=== PATIENT | female | born 1980 | race Caucasian/White ===

== ENCOUNTER 2017-04-15 12:40 | Emergency (ER) | payer OTHER ==
[2017-04-15] MEDS ORDERED: Ibuprofen TAB* 600 MG PO ONE (12:48)
--- NOTE | 2017-04-15 12:53 | UC ---
Lower Extremity/Ankle HPI - HPI Summary HPI Summary: Patient had sudden onset pain and swelling a the insertion of the achilles of the left foot. started yesterday. Painful to bear weight, cannot go up on her toes. - History of Current Complaint Stated Complaint: LEFT FOOT PAIN Time Seen by Provider: 04/15/17 12:46 Hx Obtained From: Patient ?: No Onset/Duration: Sudden Onset, Lasting Days - 1 Severity Initially: Moderate Severity Currently: Severe Aggravating Factor(s): Standing, Ambulation Alleviating Factor(s): Rest, Ice Able to Bear Weight: Yes - painful - Allergies/Home Medications Allergies/Adverse Reactions: Allergies Allergy/AdvReac Type Severity Reaction Status Date / Time Morphine Allergy Difficulty Verified 04/15/17 12:52 Breathing Sumatriptan [From Imitrex] Allergy Difficulty Verified 04/15/17 12:52 Breathing Home Medications: Home Medications Fexofenadine (NF) [Radha 180 (NF)] 180 mg PO DAILY 04/15/17 [History Confirmed 04/15/17] Multiple Vitamin [Multi Vitamin] 1 tab PO DAILY 04/15/17 [History Confirmed ] Topiramate [Topamax 50 mg tab] 50 mg PO DAILY 04/15/17 [History Confirmed ] PMH/Surg Hx/FS Hx/Imm Hx Previously Healthy: Yes - Family History Known Family History: Negative: Cardiac Disease, Hypertension Review of Systems Constitutional: Negative Skin: Negative Eyes: Negative ENT: Negative Respiratory: Negative Cardiovascular: Negative Gastrointestinal: Negative Genitourinary: Dysuria Motor: Negative Neurovascular: Other - shooting pain and mubmness into the toes Musculoskeletal: Arthralgia, Edema, Myalgia Neurological: Negative Psychological: Negative All Other Systems Reviewed And Are Negative: Yes Physical Exam Triage Information Reviewed: Yes Appearance: Well-Nourished, Ill-Appearing, Pain Distress Vital Signs Reviewed: Yes Eye Exam: Normal Eyes: Positive: Conjunctiva Clear ENT Exam: Normal ENT: Positive: Hearing grossly normal, Pharynx normal, TMs normal Dental Exam: Normal Neck exam: Normal Neck: Positive: Supple, Nontender, No Lymphadenopathy Respiratory Exam: Normal Respiratory: Positive: Chest non-tender, Lungs clear, Normal breath sounds Cardiovascular Exam: Normal Cardiovascular: Positive: RRR, No Murmur, Pulses Normal Abdominal Exam: Normal Abdomen Description: Positive: Nontender, No Organomegaly, Soft Musculoskeletal: Positive: Strength Limited @ - in weight bearing, ROM Limited @ - cannot plantar flex, Edema @ - around the achilles iinsertion on left foot, Neurological Exam: Normal Neurological: Positive: Alert, Muscle Tone Normal Psychological Exam: Normal Skin Exam: Normal Lower Extremity Course/Dx - Course Course Of Treatment: hx obtained, exam performed, meds reviewed, ibuprofen given , xray obtained. no obony abnormality. Brewer test equal, although painful on affected side. swelling and palpable tenderness. recommend non weight bearing and follow up with Dr Cope who did the surgery. - Differential Dx/Diagnosis Differential Diagnosis/HQI/PQRI: Contusion, Dislocation, Fracture (Closed), Infection, Sprain, Strain, Tendonitis, Tenosynovitis, Other - achilles partial rupture Provider Diagnoses: left ankle pain. achilles pain - Physician Notifications Discussed Patient Care With: Dr Griggs evaluated the issue as well Discharge - Discharge Plan Condition: Stable Disposition: HOME Patient Education Materials: Achilles Tendon Rupture (ED), Tendinitis (ED) Referrals: Lizette Craven PA [Primary Care Provider] - Henrry Foley MD [Medical Doctor] - Additional Instructions: 1. Do to the inflammation and swelling around the area, i recommend follow up with Dr Hurtado for re-evaluation. I have included a orthopedic referral as well if needed.
[2017-04-15 13:03] VITALS: BP 106/79
--- NOTE | 2017-04-15 13:42 | RAD ---
Indication: Left ankle pain. 3 views of left ankle demonstrates ankle mortise to be intact. There is no fracture or dislocation. No other bone or joint abnormality is identified. IMPRESSION: No fracture of the left ankle is noted.
== END 2017-04-15 14:47 | disposition home or self-care (01) ==
LOC: UCCORT 12:40
DX: M25.572 Pain in left ankle and joints of left foot (principal); Z88.5 Allergy status to narcotic agent; Z88.8 Allergy status to other drugs, medicaments and biological substances
CPT/HCPCS: 99212; A9270-GY; G0463

== ENCOUNTER 2017-06-19 11:47 | Emergency (ER) | payer OTHER ==
--- NOTE | 2017-06-19 11:57 | UC ---
Throat Pain/Nasal Jakob HPI - HPI Summary HPI Summary: 36 year old female presents with complains of sinus pressure, sore throat and congestion. - History of Current Complaint Stated Complaint: SINUS PAIN,EAR PAIN SORE THROAT Time Seen by Provider: 06/19/17 11:57 - Allergies/Home Medications Allergies/Adverse Reactions: Allergies Allergy/AdvReac Type Severity Reaction Status Date / Time Morphine Allergy Difficulty Verified 06/19/17 12:02 Breathing Sumatriptan [From Imitrex] Allergy Difficulty Verified 06/19/17 12:02 Breathing PMH/Surg Hx/FS Hx/Imm Hx - Surgical History Surgical History: Yes Surgery Procedure, Year, and Place: HYSTERECTOMY--2009. CHOLECYSTECTOMY--2008. BARIATRIC SX--2014. TUBAL LIGATION--2000. LEFT HEEL SX--10/2016 - Family History Known Family History: Negative: Cardiac Disease, Hypertension - Social History Alcohol Use: Rare Substance Use Type: None Smoking Status (MU): Current Every Day Smoker Amount Used/How Often: 1/2 PPD Length of Time of Smoking/Using Tobacco: 15 YRS Have You Smoked in the Last Year: Yes Review of Systems Constitutional: Negative Skin: Negative Eyes: Negative ENT: Sore Throat, Nasal Discharge, Sinus Congestion, Sinus Pain/Tenderness Respiratory: Negative Cardiovascular: Negative Gastrointestinal: Negative Genitourinary: Negative Motor: Negative Neurovascular: Negative Musculoskeletal: Negative Neurological: Negative Psychological: Negative All Other Systems Reviewed And Are Negative: Yes Physical Exam Triage Information Reviewed: Yes Eye Exam: Normal ENT: Positive: Pharyngeal erythema, Nasal congestion, Nasal drainage Dental Exam: Normal Neck exam: Normal Neck: Positive: 1 Respiratory Exam: Normal Cardiovascular Exam: Normal Abdominal Exam: Normal Musculoskeletal Exam: Normal Neurological Exam: Normal Psychological Exam: Normal Skin Exam: Normal Throat Pain/Nasal Course/Dx - Differential Dx/Diagnosis Provider Diagnoses: sore throat. sinusitis. cough Discharge - Discharge Plan Condition: Stable Disposition: HOME Prescriptions: Levofloxacin TAB* [Levaquin TAB*] 500 mg PO DAILY #14 tab LoraTADine TAB(NF) [Claritin 10 MG TAB(NF)] 10 mg PO DAILY #30 tab Magic M W2 Leon/Maal/Nyst/Lido* 15 ml SWISH SPIT QID #120 ml Patient Education Materials: Sinusitis (ED) Referrals: Lizette Craven PA [Primary Care Provider] - If Needed
[2017-06-19 12:03] VITALS: BP 115/73
== END 2017-06-19 12:18 | disposition home or self-care (01) ==
LOC: UCCORT 11:47
DX: J02.9 Acute pharyngitis, unspecified (principal); R05 Cough; J32.9 Chronic sinusitis, unspecified; F17.210 Nicotine dependence, cigarettes, uncomplicated; Z88.5 Allergy status to narcotic agent; Z88.8 Allergy status to other drugs, medicaments and biological substances
CPT/HCPCS: 99212; G0463

== ENCOUNTER 2017-08-14 15:29 | Emergency (ER) | payer OTHER ==
[2017-08-14 15:38] VITALS: BP 118/79
--- NOTE | 2017-08-14 17:01 | UC ---
Throat Pain/Nasal Jakob HPI - HPI Summary HPI Summary: LEFT EARACHE, COUGH CONGESTION FEVER FOR TWO DAYS - History of Current Complaint Chief Complaint: UCGeneralIllness Stated Complaint: SORE THROAT,CONGESTION Time Seen by Provider: 08/14/17 16:01 Hx Obtained From: Patient, Family/Prepress Supervisor Onset/Duration: Gradual Onset, Lasting Days, Still Present Severity: Moderate Pain Intensity: 7 Pain Scale Used: 0-10 Numeric Cough: Nonproductive Associated Signs & Symptoms: Positive: Sinus Discomfort, Nasal Discharge, Fever - Epiglottits Risk Factors Epiglottis Risk Factors: Negative - Allergies/Home Medications Allergies/Adverse Reactions: Allergies Allergy/AdvReac Type Severity Reaction Status Date / Time Morphine Allergy Difficulty Verified 08/14/17 15:38 Breathing Sumatriptan [From Imitrex] Allergy Difficulty Verified 08/14/17 15:38 Breathing PMH/Surg Hx/FS Hx/Imm Hx Previously Healthy: Yes - Surgical History Surgical History: Yes Surgery Procedure, Year, and Place: HYSTERECTOMY--2009. CHOLECYSTECTOMY--2008. BARIATRIC SX--2014. TUBAL LIGATION--2000. LEFT HEEL SX--10/2016 - Family History Known Family History: Negative: Cardiac Disease, Hypertension - Social History Occupation: Employed Full-time Lives: With Family Alcohol Use: Rare Substance Use Type: None Smoking Status (MU): Light Every Day Tobacco Smoker Amount Used/How Often: 1/2 PPD Length of Time of Smoking/Using Tobacco: 15 YRS Have You Smoked in the Last Year: Yes Cessation Counseling: Patient Advised to Stop Review of Systems Constitutional: Fever, Chills Skin: Negative Eyes: Negative ENT: Sore Throat, Ear Ache, Nasal Discharge Respiratory: Cough Cardiovascular: Negative Gastrointestinal: Negative Genitourinary: Negative Motor: Negative Neurovascular: Negative Musculoskeletal: Negative Neurological: Negative Psychological: Negative Is Patient Immunocompromised?: No All Other Systems Reviewed And Are Negative: Yes Physical Exam Triage Information Reviewed: Yes Appearance: Well-Appearing, No Pain Distress, Well-Nourished Vital Signs: Initial Vital Signs Temp 97.7 F 08/14/17 15:35 Pulse 76 08/14/17 15:35 Resp 15 08/14/17 15:35 BP 118/79 08/14/17 15:35 Pulse Ox 99 08/14/17 15:35 Vital Signs Reviewed: Yes Eye Exam: Normal ENT: Positive: Nasal congestion, TM bulging, TM dull, TM red - LEFT EAR Dental Exam: Normal Neck exam: Normal Neck: Positive: Supple, Nontender, No Lymphadenopathy Respiratory Exam: Normal Respiratory: Positive: Chest non-tender, Lungs clear, Normal breath sounds Cardiovascular Exam: Normal Cardiovascular: Positive: RRR, No Murmur, Pulses Normal, Brisk Capillary Refill Abdominal Exam: Normal Musculoskeletal Exam: Normal Musculoskeletal: Positive: Strength Intact, ROM Intact Neurological Exam: Normal Psychological Exam: Normal Skin Exam: Normal Throat Pain/Nasal Course/Dx - Differential Dx/Diagnosis Differential Diagnosis/HQI/PQRI: Otitis Media, Pharyngitis, Sinusitis, Tonsillitis, URI Provider Diagnoses: LEFT OTITIS MEDIA; SINUSITIS Discharge - Discharge Plan Condition: Stable Disposition: HOME Prescriptions: Amoxicillin/Clavulanate TAB* [Augmentin TAB 875*] 875 mg PO BID #20 tab Fluticasone NASAL SPRAY 50MCG* [Flonase NASAL SPRAY 50MCG*] 2 spray BOTH NARES DAILY #1 btl Patient Education Materials: Otitis Media (ED), Upper Respiratory Infection (ED ), Serous Otitis Media (ED) Forms: *Work Release Referrals: Joanne Hansen MD [Primary Care Provider] -
== END 2017-08-14 16:14 | disposition home or self-care (01) ==
LOC: UCCORT 15:29
DX: J32.9 Chronic sinusitis, unspecified (principal); H66.92 Otitis media, unspecified, left ear; Z88.5 Allergy status to narcotic agent; F17.210 Nicotine dependence, cigarettes, uncomplicated; Z71.6 Tobacco abuse counseling
CPT/HCPCS: 99212; G0463

== ENCOUNTER 2017-11-17 15:14 | Emergency (ER) | payer OTHER ==
--- NOTE | 2017-11-17 16:14 | UC ---
Abdominal Pain Female HPI - HPI Summary HPI Summary: 37 year old female presents with severe rlq pain. I dale send her to the er. - History of Current Complaint Stated Complaint: NAUSEA, VOMITING, PAIN ON RIGHT SIDE Time Seen by Provider: 11/17/17 16:13 Hx Obtained From: Patient Onset/Duration: Sudden Onset Severity Initially: Moderate Severity Currently: Moderate Pain Scale Used: 0-10 Numeric - 8 Allergies/Adverse Reactions: Allergies Allergy/AdvReac Type Severity Reaction Status Date / Time Morphine Allergy Difficulty Verified 11/17/17 16:24 Breathing Sumatriptan [From Imitrex] Allergy Difficulty Verified 11/17/17 16:24 Breathing PMH/Surg Hx/FS Hx/Imm Hx Previously Healthy: Yes - Surgical History Surgical History: Yes Surgery Procedure, Year, and Place: HYSTERECTOMY--2009. CHOLECYSTECTOMY--2008. BARIATRIC SX--2014. TUBAL LIGATION--2000. LEFT HEEL SX--10/2016 - Family History Known Family History: Negative: Cardiac Disease, Hypertension - Social History Alcohol Use: Rare Substance Use Type: None Smoking Status (MU): Light Every Day Tobacco Smoker Amount Used/How Often: 1/2 PPD Length of Time of Smoking/Using Tobacco: 15 YRS Have You Smoked in the Last Year: Yes Review of Systems Constitutional: Negative Skin: Negative Eyes: Negative ENT: Negative Respiratory: Negative Cardiovascular: Negative Gastrointestinal: Abdominal Pain - rlq Genitourinary: Negative Motor: Negative Neurovascular: Negative Musculoskeletal: Negative Neurological: Negative Psychological: Negative All Other Systems Reviewed And Are Negative: Yes Physical Exam Triage Information Reviewed: Yes Vital Signs Reviewed: Yes Eye Exam: Normal ENT Exam: Normal Dental Exam: Normal Neck exam: Normal Neck: Positive: 1 Respiratory Exam: Normal Cardiovascular Exam: Normal Abdomen Description: Positive: Other: - rlq Musculoskeletal Exam: Normal Neurological Exam: Normal Psychological Exam: Normal Skin Exam: Normal Abd Pain Female Course/Dx - Differential Dx/Diagnosis Provider Diagnoses: rlq pain Discharge - Discharge Plan Condition: Stable Disposition: OTHER Discharge Disposition Comment: patient suggested to go to the er. Patient Education Materials: Acute Abdominal Pain (ED) Referrals: Joanne Hansen MD [Primary Care Provider] - Additional Instructions: patient suggested to go to the er for severe rlq pain, nausea and vomitting.
[2017-11-17 16:33] VITALS: BP 110/76
--- OUTSIDE RECORDS SUMMARY | 2017-11-17 16:38 | XMS REPORT | Clinical Summary ---
:1980 Author Organization [facility] Address [address] [place] [address] Phone Allergies, Adverse Reactions, Alerts Allergy Name Reaction Description Start Date Severity Status Provider IMITREX Tachycrdia, felt like she Moderate Active MILESFINN PAYNE PA couldn't breath MORPHINE Critical Active MILES KERRY PA Conditions or Problems Problem Name Problem Onset Status Entry Provider Comment Standard Annotate Code Date Date Description Bariatric V45.86 Active CLIF Bariatric surgery / GALLERANI surgery status PA status Pain in right 719.43 Active CLIF Pain in joint wrist / GALLERANI involving PA forearm Eczema 690.18 Active CLIF Other Seborrheic / GALLERANI seborrheic NEC PA dermatitis Heel pain, 729.5 Active CLIF Pain in limb left / GALLERANI PA Gastritis, 535.00 Active MILES Acute acute w/o / KERRY PA gastritis, hemorrhage without mention of hemorrhage Migraine 346.00 Active CLIF Migraine with / GALLERANI aura, without PA mention of intractable migraine, without mention of status migrainosus Screening V76.12 Active NI Singh mammogram for / DORON screening Breast Cancer MER MANN mammogram Medication List Medication Instructions Start Stop Generic NDC Status Provider Patient Date Date Name Instruction TRIAMCINOLONE apply twice a TRIAMCINOLO 6843835 Active CLIF ACETONIDE day to 12/02 NE 0315 GALLERANI 0.025 % affected area ACETONIDE PA EXTERNAL CREAM CALCIUM 600+D 1 By Mouth CALCIUM 0875287 Active CLIF 600-400 Twice a Day 12/02 CARBONATE-V 2722 GALLERANI MG-UNIT ORAL ITAMIN D PA TABLET MULTI 1 by mouth MULTIPLE 9509133 Active MILES VITAMIN/MINERA once daily 12/31 VITAMINS-MA 6850 KERRY MANN LS ORAL TABLET NERALS PANTOPRAZOLE 1 by mouth PANTOPRAZOL 8818769 Active MILES SODIUM 40 MG once daily 12/31 E SODIUM 0701 KERRY PA ORAL TABLET DELAYED RELEASE FLUTICASONE 1 spray each FLUTICASONE 1387444 Active MILES PROPIONATE 50 nostril twice 04/06 PROPIONATE 7099 KERRY MANN MCG/ACT NASAL daily SUSPENSION FEXOFENADINE 1 by mouth FEXOFENADIN 5099509 Active MILES HCL 180 MG once daily 12/02 E HCL 8205 KERRY PA ORAL TABLET AMOXICILLIN-PO take 1 tablet AMOXICILLIN 7341086 Active NI T CLAVULANATE by mouth 12/29 -POT 7534 DORON 875-125 MG every 12 CLAVULANATE DEL ANGEL PA ORAL TABLET hours for 10 days TOPAMAX 25 MG 2 by mouth TOPIRAMATE 4088384 Active NI ORAL TABLET every 06/05 3965 DORON morning, 1 by DEL ANGEL PA mouth at bedtime. Immunizations Vaccine Administration Date Value Standard Description influenza immunization (Flu given influenza virus vaccine, Vax) has been administered unspecified formulation PPD results in mm 0 TB-PPD, interpretation of negative results influenza immunization (Flu given influenza virus vaccine, Vax) has been administered unspecified formulation Vital Signs Date Name Value Unit Range Description blood pressure, diastolic 84 mm[Hg] BP moreno blood pressure, systolic 129 mm[Hg] BP sys height E&M 64 [in_us] Bdy height pulse rate E&M 61 /min Heart rate respiratory rate E&M 20 /min Resp rate temperature E&M 98 [degF] Body temperature weight E&M 185 [lb_av] Weight Measured temperature E&M 98.3 [degF] Body temperature blood pressure, diastolic 76 mm[Hg] BP moreno blood pressure, systolic 112 mm[Hg] BP sys height E&M 64 [in_us] Bdy height pulse rate E&M 67 /min Heart rate respiratory rate E&M 18 /min Resp rate temperature E&M 97.7 [degF] Body temperature weight E&M 181.20 [lb_av] Weight Measured blood pressure, diastolic 75 mm[Hg] BP moreno blood pressure, systolic 110 mm[Hg] BP sys height E&M 64 [in_us] Bdy height pulse rate E&M 78 /min Heart rate respiratory rate E&M 18 /min Resp rate temperature E&M 98.2 [degF] Body temperature weight E&M 179.25 [lb_av] Weight Measured blood pressure, diastolic 75 mm[Hg] BP moreno blood pressure, systolic 112 mm[Hg] BP sys height E&M 64 [in_us] Bdy height pulse rate E&M 72 /min Heart rate respiratory rate E&M 10 /min Resp rate temperature E&M 98.3 [degF] Body temperature weight E&M 181 [lb_av] Weight Measured blood pressure, diastolic 83 mm[Hg] BP moreno blood pressure, systolic 119 mm[Hg] BP sys height E&M 64 [in_us] Bdy height pulse rate E&M 60 /min Heart rate respiratory rate E&M 16 /min Resp rate temperature E&M 98.0 [degF] Body temperature weight E&M 179 [lb_av] Weight Measured blood pressure, diastolic 78 mm[Hg] BP moreno blood pressure, systolic 117 mm[Hg] BP sys height E&M 64 [in_us] Bdy height pulse rate E&M 68 /min Heart rate respiratory rate E&M 18 /min Resp rate temperature E&M 98.5 [degF] Body temperature weight E&M 176 [lb_av] Weight Measured Diagnostic Results Date Name Value Unit Range Description Lab Report: [employer] W/AUTOMATED DIFF - Chemistry BASOPHILS 0.04 0.0-0.1 Absolute Neutrophil count 2.58 K/UL {Cells}/uL 1.8-7.0 Absolute Lymphocytes 2.22 10*3/uL 1.0-4.0 Lab Report: [employer] W/AUTOMATED DIFF - Hematology Eosinophil Absolute Count 0.20 10*3/uL 0.0-0.5 mean corpuscular volume, RBC 81.2 fL 80.9-99.0 hematocrit, blood 40.7 % 36.0-46.1 hemoglobin, blood 14.2 g/dL 11.6-15.8 erythrocyte (RBC) count 5.01 M/UL 10*6/mm3 3.90-5.40 leukocyte count, blood 5.5 10*3/mm3 3.1-10.7 mean corpuscular hemoglobin, RBC 28.3 pg 25.9-32.7 mean corpuscular hemoglobin concentration, 34.9 G/DL % 30.8- 34.3 RBC platelet count 237 10*3/mm3 031-855 5828/10/08 red blood cell distribution width, size 37.7 fL 3-47 density mean platelet volume 9.1 fL 8.9-12.4 neutrophils as percent of blood leukocytes 46.8 % 40.4-72.8 lymphocytes as percent of blood leukocytes 40.2 % 20.0-42.0 monocytes as percent of blood leukocytes 8.7 % 4.3-13.2 eosinophils as percent of blood leukocytes 3.6 % 0.0-6.6 basophils as percent of blood leukocytes 0.7 % 0.0-1.1 Lab Report: URINALYSIS WITH MICROSCOPIC - Chemistry urobilinogen, urine 0.2 E.U./DL {Ehrlich_U}/dL 0.2-1.0 leukocyte (WBC) esterase, urine TRACE NEGATIVE Lab Report: URINALYSIS WITH MICROSCOPIC - Urinalysis nitrite, urine, semiquantitative NEGATIVE NEGATIVE urine color YELLOW YELLOW appearance, urine CLEAR CLEAR glucose, urine, semiquantitative NEGATIVE NEGATIVE bilirubin, urine NEGATIVE NEGATIVE ketones, urine, by test strip NEGATIVE NEGATIVE specific gravity, urine 1.020 1.010-1.030 blood in urine (hemoglobin) by dipstick TRACE NEGATIVE Office Visit: PE Age:36 - Challenge tests PPD results in mm 0 mm Encounters Code Encounter Date Provider Facility CPT-92399 Ofc Vst, Est Level III NI DEL ANGEL [facility] 10:20:06 EST PA CPT-54332 Ofc Vst, Est Level IV SANDRO GUTIERREZ NP [facility] 11:36:54 EDT CPT-74645 Ofc Vst, Est Level IV MILES [facility] 00:56:35 EDT CPT-77026 Ofc Vst, Est Level II NI DEL ANGEL [facility] 11:41:17 EST PA CPT-03602 Ofc Vst, Est Level III NI DEL ANGEL [facility] 14:56:48 EST PA CPT-66085 Ofc Vst, Est Level IV MILES [facility] 10:31:51 EST CPT-71191 Ofc Vst, New Level II CLIF MANN [facility] 14:05:46 EDT Procedures Code Procedure Name Date Entry Date Standard Description CPT-55987 Influenza 3 yrs. & up 14:59:20 EDT CPT-96603 Admin one Imm 14:59:20 EDT CPT-92947 Rapid Strep - In House 11:37:03 EDT CPT-86603 Venipuncture 13:09:52 EST CPT-19495 Est - PE 18-39 Y 16:11:14 EST CPT-24372 Influenza 3 yrs. & up 11:39:53 EST CPT-41439 Admin one Imm 11:39:53 EST CPT-69896 PPD 11:39:52 EST CPT-00346 Rapid Strep - In House 14:56:47 EST CPT-61453 Venipuncture 11:37:04 EDT CPT-OHVIS Vision - [place] 14:27:31 EDT CPT-OHCOLOR Color Vision [place] 14:27:31 EDT CPT-OHAUDIO Audiometry - [place] 14:27:31 EDT CPT-OHUA Urine Dip - [place] 14:27:31 EDT CPT-OHPEDOT DOT [place] 14:27:31 EDT
--- OUTSIDE RECORDS SUMMARY | 2017-11-17 16:38 | XMS REPORT | Clinical Summary ---
:1980 Author Organization [facility] Address [address] [place] [address] Phone Allergies, Adverse Reactions, Alerts Allergy Name [...] Name Instruction TRIAMCINOLONE apply twice a TRIAMCINOLO 4210162 Active CLIF ACETONIDE day to 12/02 NE 0315 GALLERANI 0.025 % affected area ACETONIDE PA EXTERNAL CREAM CALCIUM 600+D 1 By Mouth CALCIUM 1145309 Active CLIF 600-400 Twice a Day 12/02 CARBONATE-V 2722 GALLERANI MG-UNIT ORAL ITAMIN D PA TABLET MULTI 1 by mouth MULTIPLE 5506568 Active MILES VITAMIN/MINERA once daily 12/31 VITAMINS-DE 6850 KERRY MANN LS ORAL TABLET NERALS PANTOPRAZOLE 1 by mouth PANTOPRAZOL 6735406 Active MILES SODIUM 40 MG once daily 12/31 E SODIUM 0701 KERRY PA ORAL TABLET DELAYED RELEASE FLUTICASONE 1 spray each FLUTICASONE 8715201 Active MILES PROPIONATE 50 nostril twice 04/06 PROPIONATE 7099 KERRY MANN MCG/ACT NASAL daily SUSPENSION FEXOFENADINE 1 by mouth FEXOFENADIN 4181053 Active MILES HCL 180 MG once daily 12/02 E HCL 8205 KERRY PA ORAL TABLET AMOXICILLIN-PO take 1 tablet AMOXICILLIN 2822448 Active NI T CLAVULANATE by mouth 12/29 -POT 7534 DORON 875-125 MG every 12 CLAVULANATE DEL ANGEL PA ORAL TABLET hours for 10 days TOPAMAX 25 MG 2 by mouth TOPIRAMATE 8281281 Active NI ORAL TABLET every 06/05 3965 [...] Name Value Unit Range Description Lab Report: [employer] W/AUTOMATED DIFF - Chemistry BASOPHILS 0.04 0.0-0.1 Absolute Neutrophil count 2.58 K/UL {Cells}/uL 1.8-7.0 Absolute Lymphocytes 2.22 10*3/uL 1.0-4.0 Lab Report: [employer] W/AUTOMATED DIFF - Hematology Eosinophil Absolute Count 0.20 10*3/uL 0.0-0.5 leukocyte count, blood 5.5 10*3/mm3 3.1-10.7 erythrocyte (RBC) count 5.01 M/UL 10*6/mm3 3.90-5.40 hemoglobin, blood 14.2 g/dL 11.6-15.8 hematocrit, blood 40.7 % 36.0-46.1 mean corpuscular volume, RBC 81.2 fL 80.9-99.0 mean corpuscular hemoglobin, RBC 28.3 pg 25.9-32.7 mean corpuscular hemoglobin concentration, 34.9 G/DL % 30.8- 34.3 RBC platelet count 237 10*3/mm3 167-842 2702/10/08 red blood cell distribution width, size 37.7 [...] mm Encounters Code Encounter Date Provider Facility CPT-24284 Ofc Vst, Est Level III NI DEL ANGEL [facility] 10:20:06 EST PA CPT-47065 Ofc Vst, Est Level IV SANDRO GUTIERREZ NP [facility] 11:36:54 EDT CPT-48437 Ofc Vst, Est Level IV MILES [facility] 00:56:35 EDT CPT-77903 Ofc Vst, Est Level II NI DEL ANGEL [facility] 11:41:17 EST PA CPT-69240 Ofc Vst, Est Level III NI DEL ANGEL [facility] 14:56:48 EST PA CPT-29755 Ofc Vst, Est Level IV MILES [facility] 10:31:51 EST CPT-80807 Ofc Vst, New Level II CLIF MANN [facility] 14:05:46 EDT Procedures Code Procedure Name Date Entry Date Standard Description CPT-69498 Influenza 3 yrs. & up 14:59:20 EDT CPT-64847 Admin one Imm 14:59:20 EDT CPT-17699 Rapid Strep - In House 11:37:03 EDT CPT-03589 Venipuncture 13:09:52 EST CPT-79319 Est - PE 18-39 Y 16:11:14 EST CPT-04012 Influenza 3 yrs. & up 11:39:53 EST CPT-20237 Admin one Imm 11:39:53 EST CPT-32448 PPD 11:39:52 EST CPT-91573 Rapid Strep - In House 14:56:47 EST CPT-63424 Venipuncture 11:37:04 EDT CPT-OHVIS Vision - [place] 14:27:31 EDT CPT-OHCOLOR Color Vision - [place] 14:27:31 EDT CPT-OHAUDIO Audiometry - [place] 14:27:31 EDT CPT-OHUA Urine Dip - [place] 14:27:31 EDT CPT-OHPEDOT DOT [place] 14:27:31 EDT
--- OUTSIDE RECORDS SUMMARY | 2017-11-17 16:39 | XMS REPORT | Clinical Summary ---
:1980 Author Organization [facility] Address [address] [place] [address] Phone Allergies, Adverse Reactions, Alerts Allergy Name Reaction Description Start Date Severity Status Provider IMITREX Tachycrdia, felt like she Moderate Active MILES KERRY PA couldn't breath MORPHINE Critical Active MILES EKRRY PA Conditions or Problems Problem Name Problem Onset Status Entry Provider Comment Standard Annotate Code Date Date Description Screening for V77.91 Active CLIF Screening for lipid disorder / GALLERANI lipoid PA disorders Bariatric V45.86 Active CLIF Bariatric surgery status / GALLERANI surgery PA status Pain in right 719.43 Active CLIF Pain in joint wrist / GALLERANI involving PA forearm Eczema 690.18 Active CLIF Other Seborrheic NEC / GALLERANI seborrheic PA dermatitis Heel pain, 729.5 Active CLIF Pain in limb left / GALLERANI PA Gastritis, 535.00 Active MILES Acute acute w/o / KERRY PA gastritis, hemorrhage without mention of hemorrhage Eustachian 381.81 Active NI Dysfunction tube / DORON of Eustachian dysfunction DEL ANGEL PA tube Migraine 346.00 Active CLIF Migraine with / GALLERANI aura, without PA mention of intractable migraine, without mention of status migrainosus Antibody V72.61 Active CLIF Antibody response / GALLERANI response examination PA examination Allergic 477.0 Active MILES Allergic rhinitis, / KERRY PA rhinitis due seasonal to pollen Recurrent 461.0 Active SANDRO GUTIERREZ Acute acute / STEELER maxillary maxillary sinusitis sinusitis Medication List Medication Instructions Start Stop Generic NDC Status Provider Patient Date Date Name Instruction TRIAMCINOLONE apply twice a TRIAMCINOLO 5577433 Active CLIF ACETONIDE day to 12/02 NE 0315 GALLERANI 0.025 % affected area ACETONIDE PA EXTERNAL CREAM CALCIUM 600+D 1 By Mouth CALCIUM 2005540 Active CLIF 600-400 Twice a Day 12/02 CARBONATE-V 2722 GALLERANI MG-UNIT ORAL ITAMIN D PA TABLET MULTI 1 by mouth MULTIPLE 1463178 Active MILES VITAMIN/MINERA once daily 12/31 VITAMINS-IA 6850 KERRY PA LS ORAL TABLET NERALS PANTOPRAZOLE 1 by mouth PANTOPRAZOL 3512374 Active MILES SODIUM 40 MG once daily 12/31 E SODIUM 0701 KERRY PA ORAL TABLET DELAYED RELEASE FLUTICASONE 1 spray each FLUTICASONE 3633785 Active MILES PROPIONATE 50 nostril twice 04/06 PROPIONATE 7099 KERRY PA MCG/ACT NASAL daily SUSPENSION FEXOFENADINE 1 by mouth FEXOFENADIN 8718770 Active MILES HCL 180 MG once daily 12/02 E HCL 8205 KERRY PA ORAL TABLET TOPAMAX 50 MG take 1 tablet TOPIRAMATE 4168508 Active MILES ORAL TABLET by mouth once 06/05 4065 KERRY PA daily Immunizations Vaccine Administration Date Value Standard Description influenza immunization (Flu given influenza virus vaccine, Vax) has been administered unspecified formulation PPD results in mm 0 TB-PPD, interpretation of negative results influenza immunization (Flu given influenza virus vaccine, Vax) has been administered unspecified formulation Vital Signs Date Name Value Unit Range Description temperature E&M 98.3 [degF] Body temperature blood [...] temperature weight E&M 176 [lb_av] Weight Measured blood pressure, diastolic 87 mm[Hg] BP moreno blood pressure, systolic 124 mm[Hg] BP sys height E&M 64 [in_us] Bdy height pulse rate E&M 59 /min Heart rate respiratory rate E&M 10 /min Resp rate temperature E&M 97.7 [degF] Body temperature weight E&M 174 [lb_av] Weight Measured Diagnostic Results Date Name Value Unit Range Description Lab Report: [facility] W/AUTOMATED DIFF - Chemistry BASOPHILS 0.04 0.0-0.1 Absolute Neutrophil count 2.58 K/UL {Cells}/uL 1.8-7.0 Absolute Lymphocytes 2.22 10*3/uL 1.0-4.0 Lab Report: [address] disks W/AUTOMATED DIFF - Hematology Eosinophil Absolute Count 0.20 10*3/uL 0.0-0.5 neutrophils as percent of blood leukocytes 46.8 % 40.4-72.8 lymphocytes as percent of blood leukocytes 40.2 % 20.0-42.0 monocytes as percent of blood leukocytes 8.7 % 4.3-13.2 eosinophils as percent of blood leukocytes 3.6 % 0.0-6.6 basophils as percent of blood leukocytes 0.7 % 0.0-1.1 mean corpuscular volume, RBC 81.2 fL 80.9-99.0 hematocrit, blood 40.7 % 36.0-46.1 hemoglobin, blood 14.2 g/dL 11.6-15.8 erythrocyte (RBC) count 5.01 M/UL 10*6/mm3 3.90-5.40 leukocyte count, blood 5.5 10*3/mm3 3.1-10.7 mean platelet volume 9.1 fL 8.9-12.4 red blood cell distribution width, size 37.7 fL 3-47 density platelet count 237 10*3/mm3 890-806 6849/10/08 mean corpuscular hemoglobin concentration, 34.9 G/DL % 30.8- 34.3 RBC mean corpuscular hemoglobin, RBC 28.3 pg 25.9-32.7 Lab Report: URINALYSIS WITH MICROSCOPIC - Chemistry leukocyte (WBC) esterase, urine TRACE NEGATIVE urobilinogen, urine 0.2 E.U./DL {Ehrlich_U}/dL 0.2-1.0 Lab Report: URINALYSIS WITH MICROSCOPIC - Urinalysis [...] mm Encounters Code Encounter Date Provider Facility CPT-32111 Ofc Vst, Est Level IV SANDRO [facility] 11:36:54 EDT CPT-19236 Ofc Vst, Est Level IV MILES [facility] 00:56:35 EDT CPT-91381 Ofc Vst, Est Level II NI DEL ANGEL [facility] 11:41:17 EST JOHNATHAN CPT-31045 Ofc Vst, Est Level III NI DEL ANGEL [facility] 14:56:48 EST JOHNATHAN CPT-66509 Ofc Vst, Est Level IV MILES [facility] 10:31:51 EST CPT-38442 Ofc Vst, New Level II CLIF MANN [facility] 14:05:46 EDT Procedures Code Procedure Name Date Entry Date Standard Description CPT-80827 Influenza 3 yrs. & up 14:59:20 EDT CPT-20369 Admin one Imm 14:59:20 EDT CPT-05379 Rapid Strep - In House 11:37:03 EDT CPT-11398 Venipuncture 13:09:52 EST CPT-02668 Est - PE 18-39 Y 16:11:14 EST CPT-42792 Influenza 3 yrs. & up 11:39:53 EST CPT-22942 Admin one Imm 11:39:53 EST CPT-26810 PPD 11:39:52 EST CPT-00022 Rapid Strep - In House 14:56:47 EST CPT-89825 Venipuncture 11:37:04 EDT CPT-OHVIS Vision [place] 14:27:31 EDT CPT-OHCOLOR Color Vision [place] 14:27:31 EDT CPT-OHAUDIO Audiometry [place] 14:27:31 EDT CPT-OHUA Urine Dip - [place] 14:27:31 EDT CPT-OHPEDOT DOT PE 14:27:31 EDT
--- OUTSIDE RECORDS SUMMARY | 2017-11-17 16:39 | XMS REPORT | Clinical Summary ---
:1980 Author Organization [facility] Address [address] [place] [address] Phone Allergies, Adverse Reactions, Alerts Allergy Name [...] 461.0 Active SANDRO GUTIERREZ Acute acute / [employer]ICAL [employer]ILL [employer]OR maxillary maxillary sinusitis sinusitis Medication List Medication Instructions Start Stop Generic NDC Status Provider Patient Date Date Name Instruction TRIAMCINOLONE apply twice a TRIAMCINOLO 9154897 Active CLIF ACETONIDE day to 12/02 NE 0315 GALLERANI 0.025 % affected area ACETONIDE PA EXTERNAL CREAM CALCIUM 600+D 1 By Mouth CALCIUM 1850478 Active CLIF 600-400 Twice a Day 12/02 CARBONATE-V 2722 GALLERANI MG-UNIT ORAL ITAMIN D PA TABLET MULTI 1 by mouth MULTIPLE 3706537 Active MILES VITAMIN/MINERA once daily 12/31 VITAMINS-UT 6850 KERRY PA LS ORAL TABLET NERALS PANTOPRAZOLE 1 by mouth PANTOPRAZOL 0181070 Active MILES SODIUM 40 MG once daily 12/31 E SODIUM 0701 KERRY PA ORAL TABLET DELAYED RELEASE FLUTICASONE 1 spray each FLUTICASONE 2815008 Active MILES PROPIONATE 50 nostril twice 04/06 PROPIONATE 7099 KERRY PA MCG/ACT NASAL daily SUSPENSION FEXOFENADINE 1 by mouth FEXOFENADIN 7381700 Active MILES HCL 180 MG once daily 12/02 E HCL 8205 KERRY PA ORAL TABLET TOPAMAX 50 MG take 1 tablet TOPIRAMATE 7208794 Active MILES ORAL TABLET by mouth once 06/05 4065 KERRY PA daily Immunizations Vaccine Administration Date Value Standard Description influenza immunization (Flu given influenza virus vaccine, Vax) has been administered unspecified formulation TB-PPD, interpretation of negative results PPD results in mm 0 influenza immunization (Flu given influenza virus vaccine, [...] Name Value Unit Range Description Lab Report: [facility] W/AUTOMATED DIFF - Chemistry BASOPHILS 0.04 0.0-0.1 Absolute Neutrophil count 2.58 K/UL {Cells}/uL 1.8-7.0 Absolute Lymphocytes 2.22 10*3/uL 1.0-4.0 Lab Report: [facility] W/AUTOMATED DIFF - Hematology Eosinophil Absolute Count [...] fL 3-47 density platelet count 237 10*3/mm3 753-971 8086/10/08 mean corpuscular hemoglobin concentration, 34.9 G/DL % [...] mm Encounters Code Encounter Date Provider Facility CPT-97119 Ofc Vst, Est Level IV SANDRO GUTIERREZ NP [place] [facility] 11:36:54 EDT CPT-06850 Ofc Vst, Est Level IV MILES MANN [facility] 00:56:35 EDT CPT-11311 Ofc Vst, Est Level II NI DEL ANGEL [facility] 11:41:17 EST PA CPT-81568 Ofc Vst, Est Level III NI DEL ANGEL [facility] 14:56:48 EST PA CPT-35740 Ofc Vst, Est Level IV MILES MANN [facility] 10:31:51 EST CPT-57518 Ofc Vst, New Level II CLIF MANN [facility] 14:05:46 EDT Procedures Code Procedure Name Date Entry Date Standard Description CPT-32481 Influenza 3 yrs. & up 14:59:20 EDT CPT-34225 Admin one Imm 14:59:20 EDT CPT-83161 Rapid Strep - In House 11:37:03 EDT CPT-57062 Venipuncture 13:09:52 EST CPT-47482 Est - PE 18-39 Y 16:11:14 EST CPT-41929 Influenza 3 yrs. & up 11:39:53 EST CPT-60798 Admin one Imm 11:39:53 EST CPT-48864 PPD 11:39:52 EST CPT-37135 Rapid Strep - In House 14:56:47 EST CPT-14654 Venipuncture 11:37:04 EDT CPT-OHVIS Vision [place] 14:27:31 EDT CPT-OHCOLOR Color Vision [place] 14:27:31 EDT CPT-OHAUDIO Audiometry [place] 14:27:31 EDT CPT-OHUA Urine Dip - [place] 14:27:31 EDT CPT-OHPEDOT DOT PE 14:27:31 EDT
--- OUTSIDE RECORDS SUMMARY | 2017-11-17 16:39 | XMS REPORT | Continuity of Care Document ---
:1980 Author Organization [facility] Care Team Providers Name Role Phone BETY VILLEGAS MD Primary Care Physician [phone] Insurance Providers Payer Name Policy Number Subscriber Name Relationship [facility] [id number] COLLIN SMITH SELF Advance Directives Directive Response Recorded Date/Time Code status: Full code 10/29/17 10:27pm Advance Directive? N 10/29/17 10:27pm Living Will? N 10/29/17 10:27pm Health Care Proxy? N 10/29/17 10:27pm Is the patient an Organ Donor? Y 10/29/17 10:27pm Chief Complaint and Reason for Visit Reason for Visit SORE THROAT, EAR PAIN, SINUS PRESSURE Problems Active Medical Problems Problem Onset Date Recorded Date Status Abdominal pain Unknown 10/09/16 Active Migraine Unknown 01/30/17 Active Chest pain in adult Unknown 01/30/17 Active Medications Current Home Medications Medication Dose Units Route Directions Days/Qty Instructions Start Date Amoxicil. Clav. 1 TABLET ORAL EVERY 12 HOURS 20 10/29/17 (Amox Tr-K Clv 875-125 MG Tab *) 875 MG-125 MG TAB Calcium 1 TAB ORAL ONCE DAILY 60 Carbonate/Vitami n D3 (Ra Calcium 600 + Vit D Tablet) 600 MG-400 TABLET Diazepam 5 MG ORAL 2 TIMES A DAY 5 10/01/17 (Valium) 5 MG as needed for TABLET PAIN (1-10) Fexofenadine HCl 180 MG ORAL ONCE DAILY 30 180 MG TABLET Fluticasone 50 MCG NASAL 2 TIMES A DAY 1 Propionate 50 SPRAY MCG/ACTUATION SPRAY.SUSP Multivitamin 1 TAB ORAL ONCE DAILY (Multi Vitamin Daily *) 1 EACH TABLET Naproxen 500 MG ORAL 2 TIMES A DAY 10 10/01/17 (Naprosyn) 500 MG TABLET Ondansetron HCl 4 MG ORAL EVERY 8 HOURS 15 NEEDED FOR 09/06/17 (Zofran) 4 MG NEEDED as NAUSEA TABLET needed for NAUSEA Oxycodone 1 TABLET ORAL EVERY 4 TO 6 5 10/01/17 HCl/Acetaminophe HRS for PAIN n (Percocet 5-325 MG Tablet) 5 MG-325 MG TABLET Ranitidine HCl 150 MG ORAL ONCE DAILY 30 150 MG CAPSULE Topiramate 50 MG 50 MG ORAL 2 TIMES A DAY 30 TABLET Past Home Medications Medication Directions Ordered Status Acetaminophen 500 Mg Tablet NEEDED Unknown Discontinued Tablet, 1,000 Mg Oral Azithromycin (Zithromax) 250 Mg DIRECTED 09/19/16 Discontinued Tablet Tablet, 1 Pac Oral Dicyclomine Hcl (Bentyl) 20 Mg 4 TIMES A DAY 10/09/16 Discontinued Tablet Tablet, 20 Mg Oral Fexofenadine Hcl (Radha 2 TIMES A DAY Unknown Discontinued Allergy) 60 Mg Tablet Tablet, 60 Mg Oral Hydrocodone/Acetaminophen (Lortab EVERY 4 HOURS as needed for 10/09/16 Discontinued 5-325 Mg Tablet) 5 Mg-325 Mg pain Tablet Tablet, 1 Tablet Oral Ranitidine Hcl (Zantac) 300 Mg 2 TIMES A DAY 10/09/16 Discontinued Tablet Tablet, 300 Mg Oral Social History Problem Response Recorded Date Other substance/drug use N 10/29/17 Query Response Start Date Stop Date Smoking Status Current every day smoker Hospital Discharge Instructions No hospital discharge instructions. Plan of Care Discharge Date 10/29/17 Disposition Routine Discharge Home Condition at Discharge STABLE Instructions/Education Provided Sinusitis (ED) Prescriptions See Medications Section Referrals BETY VILLEGAS MD - Additional Instructions/Education You need to make an appointment to follow- up with the following health care provider or your regular doctor within 3 days. Please make your appointment to see your health care provider as soon as possible. Please return immediately if your symptoms worsen, or you cannot get a follow-up appointment. Functional Status Query Response Date Recorded Do you get in and out of a chair: Independently October 29, 2017 10:27pm Do you bathe/dress: Independently October 29, 2017 10:27pm Living situation: Independent at home October 29, 2017 10:27pm Allergies, Adverse Reactions, Alerts Allergen Type Severity Reaction Status Last Updated morphine Allergy Unknown CP Active 01/30/17 sumatriptan Allergy Intermediate Short of Breath Active 09/06/17 Immunizations Name Date Given Type Last Tetanus unsure Historical Vital Signs Vital Reading Collection Date/Time Result Blood Pressure 10/29/17 10:29pm 116/75 Temperature 10/29/17 10:29pm 97.8 F Temperature Source 10/29/17 10:29pm Temporal Respiratory Rate 10/29/17 10:29pm 16 Pulse Rate 10/29/17 10:29pm 69 Bedside Pulse Oximetry 10/29/17 10:29pm 100 Height 10/29/17 10:25pm 5 ft 3 in Height 10/29/17 10:25pm 160.02 cm Weight 10/29/17 10:25pm 170 lb Weight 10/29/17 10:25pm 77.112 kg Body Mass Index 10/29/17 10:25pm 30.1 kg/m2 Results Laboratory Results Test Name Result Units Flags Reference Collection Result Comments Date/Time Date/Time Allergen Levels of Specific IgE Class Description of Class 10/14/17 10/19/17 Reference ----- 7:30am 11:54am Ranges < 0.10 0 Negative 0.10 - 0.31 0/I Equivocal/Low 0.32 - 0.55 I Low 0.56 - 1.40 II Moderate 1.41 - 3.90 III High 3.91 - 19.00 IV Very High 19.01 - 100.00 V Very High >100.00 Very High Dermatophagoid <0.10 kU/L Class 0 10/14/17 10/19/17 es 7:30am 11:54am pteronyssinus IgE Dermatophagoid <0.10 kU/L Class 0 10/14/17 10/19/17 es farinae IgE 7:30am 11:54am Allerg Cat <0.10 kU/L Class 0 10/14/17 10/19/17 Dander/Epithel 7:30am 11:54am ium Allergen Dog Dander IgE <0.10 kU/L Class 0 10/14/17 10/19/17 Allergen 7:30am 11:54am [place] Blue <0.10 kU/L Class 0 10/14/17 10/19/17 (April) Grass 7:30am 11:54am Allergen Bermuda Grass <0.10 kU/L Class 0 10/14/17 10/19/17 Allergen IgE 7:30am 11:54am Antibody Bahia Grass <0.10 kU/L Class 0 10/14/17 10/19/17 Allergen IgE 7:30am 11:54am Antibody Cockroach <0.10 kU/L Class 0 10/14/17 10/19/17 Allergen IgE 7:30am 11:54am Antibody Penicillium <0.10 kU/L Class 0 10/14/17 10/19/17 chrysogenum 7:30am 11:54am Allergen Cladosporium <0.10 kU/L Class 0 10/14/17 10/19/17 herbarum IgE 7:30am 11:54am Allergen Aspergillus <0.10 kU/L Class 0 10/14/17 10/19/17 fumigatus 7:30am 11:54am Allergen IgE Mucor <0.10 kU/L Class 0 10/14/17 10/19/17 racemosus 7:30am 11:54am Allergen IgE Ab Alternaria <0.10 kU/L Class 0 10/14/17 10/19/17 alternata IgE 7:30am 11:54am Allergen Stemphylium <0.10 kU/L Class 0 10/14/17 10/19/17 herbarum 7:30am 11:54am Allergen IgE Silver Birch <0.10 kU/L Class 0 10/14/17 10/19/17 Tree Allergen 7:30am 11:54am IgE Ab [place] Tree <0.10 kU/L Class 0 10/14/17 10/19/17 Allergen IgE 7:30am 11:54am Ab Moroccan Elm <0.10 kU/L Class 0 10/14/17 10/19/17 Tree Allergen 7:30am 11:54am IgE Ab White Joshua <0.10 kU/L Class 0 10/14/17 10/19/17 Allergen IgE 7:30am 11:54am Ab Hazelnut Tree <0.10 kU/L Class 0 10/14/17 10/19/17 Allergen 7:30am 11:54am White [place] <0.10 kU/L Class 0 10/14/17 10/19/17 Tree Allergen 7:30am 11:54am IgE Ab White Morrison <0.10 kU/L Class 0 10/14/17 10/19/17 Allergen 7:30am 11:54am Mountain Linn <0.10 kU/L Class 0 10/14/17 10/19/17 Tree Allergen 7:30am 11:54am Common Ragweed <0.10 kU/L Class 0 10/14/17 10/19/17 (Short) 7:30am 11:54am Allergen IgE Mugwort IgE <0.10 kU/L Class 0 10/14/17 10/19/17 Allergen 7:30am 11:54am Sami <0.10 kU/L Class 0 10/14/17 10/19/17 Plantain 7:30am 11:54am Allergen IgE Ab Rough Pigweed <0.10 kU/L Class 0 10/14/17 10/19/17 Allergen IgE 7:30am 11:54am Antibody Sheep [place] <0.10 kU/L Class 0 10/14/17 10/19/17 Allergen IgE 7:30am 11:54am Antibody Nettle <0.10 kU/L Class 0 10/14/17 10/19/17 Test(s) [id number] Cockroach, Moroccan; 437692- Allergen 7:30am 11:54am [id number] [place], White were developed and had performance characteristics determined by [facility]. These tests have not been cleared or approved by the U.S. Food and Drug Administration. The FDA has determined that such clearance or approval is not necessary. These tests are used for clinical purposes. These should not be regarded as investigational or for research. Performed at: - [facility] [id number] Medical Sales Consultant: Trevor Talbert MD, Phone: [phone] Reba (Box <0.10 kU/L Class 0 10/14/17 10/19/17 Elder) 7:30am 11:54am Allergen IgE Ab White Blood 5.5 K/uL 3.1-10.7 09/06/17 09/06/17 Count 6:55pm 7:03pm Red Blood 5.01 M/uL 3.90-5.40 09/06/17 09/06/17 Count 6:55pm 7:03pm Hemoglobin 14.2 gm/dL 11.6-15.8 09/06/17 09/06/17 6:55pm 7:03pm Hematocrit 40.7 % 36.0-46.1 09/06/17 09/06/17 6:55pm 7:03pm Mean 81.2 fl 80.9-99.0 09/06/17 09/06/17 Corpuscular 6:55pm 7:03pm Volume Mean 28.3 pg 25.9-32.7 09/06/17 09/06/17 Corpuscular 6:55pm 7:03pm Hemoglobin Mean 34.9 g/dL H 30.8-34.3 09/06/17 09/06/17 Corpuscular 6:55pm 7:03pm Hemoglobin Concent Platelet Count 237 K/uL 150-400 09/06/17 09/06/17 6:55pm 7:03pm Red Cell 37.7 fl 3-47 09/06/17 09/06/17 Distribution 6:55pm 7:03pm Width RDW 13.1 % 11.7-14.4 09/06/17 09/06/17 Coefficient of 6:55pm 7:03pm Variation Mean Platelet 9.1 fL 8.9-12.4 09/06/17 09/06/17 Volume 6:55pm 7:03pm Neutrophils 46.8 % 40.4-72.8 09/06/17 09/06/17 (%) (Auto) 6:55pm 7:03pm Lymphocytes 40.2 % 20.0-42.0 09/06/17 09/06/17 (%) (Auto) 6:55pm 7:03pm Monocytes (%) 8.7 % 4.3-13.2 09/06/17 09/06/17 (Auto) 6:55pm 7:03pm Eosinophils 3.6 % 0.0-6.6 09/06/17 09/06/17 (%) (Auto) 6:55pm 7:03pm Basophils (%) 0.7 % 0.0-1.1 09/06/17 09/06/17 (Auto) 6:55pm 7:03pm Neutrophils # 2.58 K/uL 1.8-7.0 09/06/17 09/06/17 (Auto) 6:55pm 7:03pm Lymphocytes # 2.22 K/uL 1.0-4.0 09/06/17 09/06/17 (Auto) 6:55pm 7:03pm Monocytes # 0.48 K/uL 0.3-0.9 09/06/17 09/06/17 (Auto) 6:55pm 7:03pm Eosinophils # 0.20 K/uL 0.0-0.5 09/06/17 09/06/17 (Auto) 6:55pm 7:03pm Basophils # 0.04 K/uL 0.0-0.1 09/06/17 09/06/17 (Auto) 6:55pm 7:03pm Urine Color YELLOW YELLOW 09/06/17 09/06/17 6:55pm 7:07pm Urine Clarity CLEAR CLEAR 09/06/17 09/06/17 6:55pm 7:07pm Urine Glucose NEGATIVE mg/dL NEGATIVE 09/06/17 09/06/17 (UA) 6:55pm 7:07pm Urine NEGATIVE NEGATIVE 09/06/17 09/06/17 Bilirubin 6:55pm 7:07pm Urine Ketones NEGATIVE mg/dL NEGATIVE 09/06/17 09/06/17 6:55pm 7:07pm Urine Specific 1.020 1.010-1.03 09/06/17 09/06/17 [place] 0 6:55pm 7:07pm Urine Blood TRACE NEGATIVE 09/06/17 09/06/17 6:55pm 7:07pm Urine pH 6.0 L 6.5-7.5 09/06/17 09/06/17 6:55pm 7:07pm Urine Protein NEGATIVE mg/dL NEGATIVE 09/06/17 09/06/17 6:55pm 7:07pm Urine 0.2 E.U./d 0.2-1.0 09/06/17 09/06/17 Urobilinogen L 6:55pm 7:07pm Urine Nitrite NEGATIVE NEGATIVE 09/06/17 09/06/17 6:55pm 7:07pm Urine TRACE H NEGATIVE 09/06/17 09/06/17 Leukocyte 6:55pm 7:07pm Esterase Urine RBC 0-2 rbc/hp 0-2 09/06/17 09/06/17 f 6:55pm 7:24pm Urine WBC 2-5 wbc/hp 0-7 09/06/17 09/06/17 f 6:55pm 7:24pm Urine VERY FEW /lpf NONE SEEN 09/06/17 09/06/17 Epithelial 6:55pm 7:24pm Cells Urine Calcium FEW NONE SEEN 09/06/17 09/06/17 Oxalate 6:55pm 7:24pm Crystals Urine Mucus VERY FEW NONE SEEN 09/06/17 09/06/17 6:55pm 7:24pm Glucose Screen 107 mg/dL H 74-106 09/06/17 09/06/17 6:55pm 7:30pm Blood Urea 10 mg/dL 06-1609/06/17 09/06/17 Nitrogen 6:55pm 7:30pm Creatinine 0.8 mg/dL 0.6-1.3 09/06/17 09/06/17 6:55pm 7:30pm Estimated GFR >60 mL/min >60 09/06/17 09/06/17 (Non- 6:55pm 7:30pm Moroccan Estimated GFR >60 mL/min >60 09/06/17 09/06/17 Note: ( 6:55pm 7:30pm Persistent reduction for 3 months or more in an eGFR <60 Moroccan) mL/min/1.73 m2 defines CKD. Patients with eGFR values & gt;/=60 mL/min/1.73 m2 may also have CKD if evidence of persistent proteinuria is present. The original MDRD equation for estimated GFR is not valid for patients less than 18 years of age. Additional information may be found at www.kdoqi.org. BUN/Creatinine 12.5 ratio 09/06/17 09/06/17 Ratio 6:55pm 7:30pm Sodium Level 144 mmol/L 136-145 09/06/17 09/06/17 6:55pm 7:30pm Potassium 3.8 mmol/L 3.5-5.1 09/06/17 09/06/17 Level 6:55pm 7:30pm Chloride Level 111 mmol/L H 98-107 09/06/17 09/06/17 6:55pm 7:30pm Carbon Dioxide 30 mmol/L 21-32 09/06/17 09/06/17 Level 6:55pm 7:30pm Anion Gap 3 mEq/L L 8-16 09/06/17 09/06/17 6:55pm 7:30pm Calcium Level 8.8 mg/dL 8.5-10.1 09/06/17 09/06/17 6:55pm 7:30pm Total Protein 6.7 g/dL 6.4-8.2 09/06/17 09/06/17 6:55pm 7:30pm Albumin 3.5 g/dL 3.4-5.0 09/06/17 09/06/17 6:55pm 7:30pm Globulin 3.2 g/dL 1.9-4.3 09/06/17 09/06/17 6:55pm 7:30pm Albumin/Globul 1.1 ratio 09/06/17 09/06/17 in Ratio 6:55pm 7:30pm Total 0.2 mg/dL 0.2-1.0 09/06/17 09/06/17 Bilirubin 6:55pm 7:30pm Aspartate 12 U/L L 15-37 09/06/17 09/06/17 Values below the stated reference ranges of AST and ALT can Amino Transf 6:55pm 7:30pm be seen in normal populations. Clinical correlation is (AST/SGOT) suggested. Alanine 22 U/L 12-78 09/06/17 09/06/17 Aminotransfera 6:55pm 7:30pm se (ALT/SGPT) Alkaline 102 U/L 45-117 09/06/17 09/06/17 Phosphatase 6:55pm 7:30pm Lipase 355 U/L H 56-289 09/06/17 09/06/17 6:55pm 7:30pm Procedures Procedure Status Date Provider(s) CT ABDO & PELV W/ IV CONTRAST Completed 09/06/[address] MAX FACIAL W/O IV CONTRAST Completed 09/29/17 KENDELL SIMS MD Encounters Encounter Location Arrival/Admit Date Discharge/Depart Date Attending Provider Departed [place] 10/29/17 10:18pm 10/29/17 10:49pm [facility] Registered [place] 10/14/17 7:25am Rica BELLA Referral [facility] Departed [place] 10/01/17 3:04pm 10/01/17 4:02pm [facility] Registered [place] 09/29/17 7:48am KENDELL SIMS [facility] Departed [place] 09/06/17 6:06pm 09/06/17 8:30pm DYLON KING [facility]
--- OUTSIDE RECORDS SUMMARY | 2017-11-17 16:40 | XMS REPORT ---
:1980 External Reference #:[id number] Author Organization [facility] [employer] Address [address] [place] [address] Phone [phone] Care Team Providers Name Role Phone Nasra Machuca NP Care Team Information Technical Sales Manager Unavailable Nasra Machuca NP Primary Care Physician Unavailable Payers Type Date Identification Numbers Payment Provider Subscriber Health Maintenance Policy Number: [place] [facility] Briana Moseley Organization (HMO) [id number] PayID: [id number] [address] [place] [address] Problems Description No Information Family History Date Family Member(s) Problem(s) Comments Father due to renal failure () Mother due to Cancer () Social History Type Date Description Comments Cigarette Use Light tobacco smoker (10 or fewer cigarettes/day) Recreational Drug Use Never Used Drugs Allergies, Adverse Reactions, Alerts Date Description Reaction Status Severity Comments 09/21/2017 Morphine shortness of breath active Moderate 09/21/2017 Imitrex shortness of breath active Moderate Medications Medication Date Status Form Strength Qnty SIG Indications Ordering Provider Azelastine HCL Active Solution 0.1% 1units 2 squirts Demetrius (Nasal) Dino each Victor M, nostril M.D. every day Ranitidine HCL Active Capsules 150mg 30caps 1 by Dino Romo mouth Victor M, every day M.D. Topamax 0 Active Tablets Unknown 000 Fexofenadine Active Tablets 1 by Unknown HCL 000 mouth daily as needed Azithromycin Hx Tablets 250mg 6tabs 2 pills x Dino Romo - 1 day Victor M, then 1 M.D. 017 every day for 4 days Prednisone Hx Tablets 5mg 3tabs 1 by Romo, 017 - mouth Victor M, every day Nate Sun Vital Signs Date Vital Result Comment 10/26/2017 Weight 185.00 lb Height 63 inches 5'3" BMI (Body Mass Index) 32.8 kg/m2 BP Systolic 118 mmHg BP Diastolic 68 mmHg Heart Rate 66 /min O2 % BldC Oximetry 99 % Body Temperature 96.3 F Pain Level 0 10/12/2017 Weight 185.25 lb Height 63 inches 5'3" BMI (Body Mass Index) 32.8 kg/m2 BP Systolic 121 mmHg BP Diastolic 84 mmHg Heart Rate 72 /min O2 % BldC Oximetry 99 % Body Temperature 97.5 F Pain Level 0 09/21/2017 Weight 184.00 lb Height 63 inches 5'3" BMI (Body Mass Index) 32.6 kg/m2 BP Systolic 118 mmHg BP Diastolic 80 mmHg Heart Rate 71 /min O2 % BldC Oximetry 100 % Body Temperature 97.8 F Pain Level 4 left ear Results Test Date Test Result H/L Range Note Allergens,Zone 1 10/14/2017 mRast Class (Text Only) (SEE NOTE) 1, 2 D Pteronyssinus <0.10 kU/L Class 0 1 D Farinae Mite <0.10 kU/L Class 0 1 Cat Hair/Dander <0.10 kU/L Class 0 1 Dog Hair/Dander <0.10 kU/L Class 0 1 Bluegrass,[place] <0.10 kU/L Class 0 1 Berm[place] Grass <0.10 kU/L Class 0 1 Bahia Grass <0.10 kU/L Class 0 1 Cockroach,[place] <0.10 kU/L Class 0 1 Penicillium Not <0.10 kU/L Class 0 1 Cladosporium Herbarum <0.10 kU/L Class 0 1 Apergillis Fumigatus Ige <0.10 kU/L Class 0 1 Mucor Racemosus <0.10 kU/L Class 0 1 Alternaria Alternata <0.10 kU/L Class 0 1 Stemphylium Bot <0.10 kU/L Class 0 1 Birch,White <0.10 kU/L Class 0 1 [place],White <0.10 kU/L Class 0 1 Elm,[place] (White) <0.10 kU/L Class 0 1 Joshua,White <0.10 kU/L Class 0 1 Hazelnut Tree T004 Ige <0.10 kU/L Class 0 1 [place],White <0.10 kU/L Class 0 1 Fernwood,White <0.10 kU/L Class 0 1 [place],Mountain <0.10 kU/L Class 0 1 Ragweed,Short/ <0.10 kU/L Class 0 1 Mugwort <0.10 kU/L Class 0 1 Plantain,[place]ese <0.10 kU/L Class 0 1 Pigweed,Rough <0.10 kU/L Class 0 1 Sheep [place] (DO <0.10 kU/L Class 0 1 Nettle <0.10 kU/L Class 0 1, 3 Maple/[place] Ige T001 <0.10 kU/L Class 0 1 1 J32.9 2 Levels of Specific IgE Class Description of Class ----- < 0.10 0 Negative 0.10 - 0.31 0/I Equivocal/Low 0.32 - 0.55 I Low 0.56 - 1.40 II Moderate 1.41 - 3.90 III High 3.91 - 19.00 IV Very High 19.01 - 100.00 V Very High >100.00 Very High 3 Test(s) [id number] Cockroach, [place]; [id number]- [id number]-RzY [place], White were developed and had performance characteristics determined by [facility]. These tests have not been cleared or approved by the U.S. Food and Drug Administration. The FDA has determined that such clearance or approval is not necessary. These tests are used for clinical purposes. These should not be regarded as investigational or for research. Performed at: [address] [id number] [place] Operator: Trevor Talbert MD, Phone: [phone] Procedures Date CPT Code Description Status 09/21/2017 27651 Audiometry, Comprehensive Completed 09/21/2017 69516 Fiberoptic Laryngoscopy,Diag. Completed Encounters Type Date Location Provider CPT E/M Dx Office Visit 10/26/2017 8:00a [place] [address] J32.9 H69.93 K21.9 Office Visit 10/12/2017 8:45a [place] [address] J01.90 Office Visit 09/21/2017 9:30a [place] [address] J32.9 J35.3 H69.93 K21.9 Plan of Care Future Appointment(s):01/27/2018 8:15 angel - Victor M Romo M.D. at Main Office
--- OUTSIDE RECORDS SUMMARY | 2017-11-17 16:40 | XMS REPORT ---
:1980 External Reference #:[id number] Author Organization [facility] Address [address] [place] [address] Phone [phone] Care Team Providers Name Role Phone Nasra Machuca NP Care Team Information Bandage Maker Unavailable Nasra Machuca NP Primary Care Physician Unavailable Payers Type Date Identification Numbers Payment Provider Subscriber Health Maintenance Policy Number: [place] [facility] Briana Moseley Organization (HMO) [id number] PayID: [id number] [address] [place] [address] Problems Description No Information Family History Date [...] Form Strength Qnty SIG Indications Ordering Provider Ranitidine HCL Active Capsules 150mg 30caps 1 [...] Prednisone Hx Tablets 5mg 3tabs 1 by Dino Romo - mouth Victor M, every day M.D. 017 Vital Signs Date Vital Result Comment 10/26/2017 [...] Dog Hair/Dander <0.10 kU/L Class 0 1 Bluegrass,[place] <0.10 kU/L Class 0 1 B[place] Grass <0.10 kU/L Class 0 1 Bahia Grass <0.10 kU/L Class 0 1 Cockroach,[place] Citizen <0.10 kU/L Class 0 1 Penicillium Not <0.10 kU/L Class 0 1 Cladosporium Herbarum <0.10 kU/L Class 0 1 Apergillis Fumigatus Ige <0.10 kU/L Class 0 1 Mucor Racemosus <0.10 kU/L Class 0 1 Alternaria Alternata <0.10 kU/L Class 0 1 Stemphylium Bot <0.10 kU/L Class 0 1 Birch,White <0.10 kU/L Class 0 1 [place],White <0.10 kU/L Class 0 1 Elm,[place] Citizen (White) <0.10 kU/L Class 0 1 Joshua,White <0.10 kU/L Class 0 1 Hazelnut Tree T004 Ige <0.10 kU/L Class 0 1 [place],White <0.10 kU/L Class 0 1 [place],White <0.10 kU/L Class 0 1 Power,Mountain <0.10 kU/L Class 0 1 Ragweed,Short/ <0.10 kU/L Class 0 1 Mugwort <0.10 kU/L Class 0 1 Plantain,Tog[place]ese <0.10 kU/L Class 0 1 Pigweed,Rough <0.10 kU/L Class 0 1 Sheep [place] (DO <0.10 kU/L Class 0 1 Nettle <0.10 kU/L Class 0 1, 3 Maple/[place] Ige T001 <0.10 kU/L Class 0 1 1 J32.9 2 Levels of Specific IgE Class Description of Class ----- < 0.10 0 Negative 0.10 - 0.31 0/I Equivocal/Low 0.32 - 0.55 I Low 0.56 - 1.40 II Moderate 1.41 - 3.90 III High 3.91 - 19.00 IV Very High 19.01 - 100.00 V Very High >100.00 Very High 3 Test(s) [id number] Cockroach, [place] Citizen; [id number]- O826-JmE [place], White were developed and had performance characteristics determined by [facility]. These tests have not been cleared or approved by the U.S. Food and Drug Administration. The FDA has determined that such clearance or approval is not necessary. These tests are used for clinical purposes. These should not be regarded as investigational or for research. Performed at: [address] [id number] Senior Portfolio Manager: Trevor Talbert MD, Phone: [phone] Procedures Date CPT Code Description Status 09/21/2017 43113 Audiometry, Comprehensive Completed 09/21/2017 03264 Fiberoptic Laryngoscopy,Diag. Completed Encounters Type Date Location Provider CPT E/M Dx Office Visit 10/12/2017 8:45a [place] [address] J01.90 Office Visit 09/21/2017 9:30a [place] [address] J32.9 J35.3 H69.93 K21.9 Plan of Care No Information Available
== END 2017-11-17 16:41 ==
LOC: UCCORT 15:14
DX: R10.31 Right lower quadrant pain (principal); F17.210 Nicotine dependence, cigarettes, uncomplicated
CPT/HCPCS: 99212; G0463

== ENCOUNTER 2018-06-24 14:44 | Emergency (ER) | payer OTHER ==
[2018-06-24 15:15] VITALS: BP 107/68
--- NOTE | 2018-06-24 15:47 | UC ---
UC General HPI - HPI Summary HPI Summary: head ache, back ache and general fatigue for a couple of days--no fevers, chills nausea or vomiting---no illness exposures no urinary symptoms - History of Current Complaint Chief Complaint: UCRespiratory Stated Complaint: MORA/FATIGUED Time Seen by Provider: 06/24/18 15:41 Hx Obtained From: Patient Hx Last Menstrual Period: 2009 Onset/Duration: Gradual Onset, Lasting Days, Still Present Timing: Constant Pain Intensity: 6 - Allergy/Home Medications Allergies/Adverse Reactions: Allergies Allergy/AdvReac Type Severity Reaction Status Date / Time morphine Allergy Difficulty Verified 06/24/18 15:27 Breathing sumatriptan Allergy Difficulty Verified 06/24/18 15:27 Breathing Home Medications: Home Medications Ibuprofen TAB* [Motrin TAB* 600 MG] 600 mg PO ONCE PRN 06/24/18 [History Confirmed 06/24/18] Multivitamin [Multivitamins] 1 cap PO DAILY 06/24/18 [History Confirmed 06/24/18 ] Omeprazole CAP* [Prilosec CAP* 20 MG] 20 mg PO BID 06/24/18 [History Confirmed 06/24/18] PMH/Surg Hx/FS Hx/Imm Hx Previously Healthy: No GI/ History: Gastroesophageal Reflux, Kidney Stones - Surgical History Surgical History: Yes Surgery Procedure, Year, and Place: HYSTERECTOMY--2009, tonsils, adenoids deviated septum 03/29/18. CHOLECYSTECTOMY--2008. BARIATRIC SX--2014. TUBAL LIGATION--2000. LEFT HEEL SX--10/2016 - Family History Known Family History: Negative: Cardiac Disease, Hypertension - Social History Occupation: Employed Full-time Lives: With Family Alcohol Use: Rare Substance Use Type: None Smoking Status (MU): Former Smoker Amount Used/How Often: 1/2 PPD Length of Time of Smoking/Using Tobacco: 15 YRS Have You Smoked in the Last Year: Yes Review of Systems Constitutional: Negative Skin: Negative Eyes: Negative ENT: Negative Respiratory: Negative Cardiovascular: Negative Gastrointestinal: Negative Genitourinary: Negative Motor: Negative Neurovascular: Negative Musculoskeletal: Arthralgia - left side back pain Neurological: Negative Psychological: Negative Is Patient Immunocompromised?: No All Other Systems Reviewed And Are Negative: Yes Physical Exam Triage Information Reviewed: Yes Appearance: Well-Appearing, No Pain Distress, Well-Nourished Vital Signs: Initial Vital Signs Temp 97.7 F 06/24/18 15:10 Pulse 76 06/24/18 15:10 Resp 20 06/24/18 15:10 BP 107/68 06/24/18 15:10 Pulse Ox 98 06/24/18 15:10 Vital Signs Reviewed: Yes Eye Exam: Normal Eyes: Positive: Conjunctiva Clear ENT Exam: Normal ENT: Positive: Normal ENT inspection, Hearing grossly normal, Pharynx normal, TMs normal, Uvula midline. Negative: Pharyngeal erythema, Trismus, Muffled voice, Hoarse voice, Sinus tenderness Dental Exam: Normal Neck exam: Normal Neck: Positive: Supple, Nontender Respiratory Exam: Normal Respiratory: Positive: Chest non-tender, Lungs clear, Normal breath sounds, No respiratory distress, No accessory muscle use Cardiovascular Exam: Normal Cardiovascular: Positive: RRR, No Murmur, Pulses Normal, Brisk Capillary Refill Abdominal Exam: Normal Abdomen Description: Positive: Nontender, No Organomegaly, Soft. Negative: CVA Tenderness (R), CVA Tenderness (L), Hepatomegaly, McBurney's Point Tenderness, Peritoneal Signs Bowel Sounds: Positive: Present Musculoskeletal Exam: Normal Musculoskeletal: Positive: Strength Intact, ROM Intact, No Edema Neurological Exam: Normal Neurological: Positive: Alert, Muscle Tone Normal Psychological Exam: Normal Skin Exam: Normal Diagnostics - Laboratory Diagnostic Studies Completed/Ordered: ua-+Blood and Leukoesterace Discharge - Discharge Plan Condition: Stable Disposition: HOME Patient Education Materials: Viral Syndrome (ED), Fatigue (ED) Forms: *Work Release Referrals: Garima Vela NP [Primary Care Provider] - 3 Days - Billing Disposition and Condition Condition: STABLE Disposition: Home
--- NOTE | 2018-06-24 17:00 | RAD ---
INDICATION: Hematuria, history of renal colic. COMPARISON: There are no prior studies available for comparison. TECHNIQUE: A CT scan of the abdomen was performed without intravenous or oral contrast. Contiguous axial sections were obtained from the lung bases through the tops of the iliac crests. Images were reconstructed in the coronal and sagittal planes. FINDINGS: The lung bases are clear. No pleural effusion is present. The liver and spleen are normal in size without significant focal abnormality. The patient is status post cholecystectomy. The pancreas is within normal limits in size. The adrenal glands and kidneys are normal in size. No hydronephrosis is seen. There is a small punctate 1 mm calculus in the lower pole of the right kidney and a 5 mm calculus in the midportion of the left kidney. No ureteral or bladder calculi are appreciated. The aorta is normal in caliber without significant calcific plaque. No significant enlarged retroperitoneal lymph nodes are seen. There are postsurgical changes in the stomach. The stomach, small and large bowel appear nondistended. The appendix appears within normal limits. There are scattered diverticuli which are [id number] in degree in the descending and sigmoid colon. There is no evidence for diverticulitis or colitis. There is a small periumbilical hernia containing fat centered just to the right of the midline. No free intraperitoneal air or fluid is seen. No significant focal osseous abnormality is seen. IMPRESSION: 1. BILATERAL RENAL CALCULI, NO EVIDENCE FOR HYDRONEPHROSIS. 2. STATUS POST CHOLECYSTECTOMY. 3. SMALL PERIUMBILICAL HERNIA CONTAINING FAT.
[2018-06-24 19:54] LABS: ABS Basophils 0 10^3/ul (0-0.2); ABS Eosinophils 0.1 10^3/ul (0-0.6); ABS Lymphocytes 2.5 10^3/ul (1.0-4.8); ABS Monocytes 0.4 10^3/ul (0-0.8); ABS Neutrophils 3.7 10^3/ul (1.5-7.7); ABS Nucleated RBC 0 10^3/ul; Eosinophil % 1.7 % (0-6); Hematocrit 41 % (35-47); Hemoglobin 13.9 g/dl (12.0-16.0); Mean Corpuscular HGB Conc 34 g/dl (31-36); Mean Corpuscular Hemoglobin 28 pg (27-31); Mean Corpuscular Volume 80 fL (80-97); Mean Platelet Volume 7.7 um3 (7.4-10.4); Nucleated Red Blood Cells % 0.2; Platelet Count 268 10^3/ul (150-450); Red Blood Count 5.06 10^6/ul (4.00-5.40); Red Cell Distribution Width 13 % (10.5-15); White Blood Count 6.7 10^3/ul (3.5-10.8)
[2018-06-24 20:13] LABS: EGFR Non-African American 69.2 (>60)
== END 2018-06-24 17:21 | disposition home or self-care (01) ==
LOC: UCCORT 14:44
DX: R51 Headache (principal); K21.9 Gastro-esophageal reflux disease without esophagitis; Z87.891 Personal history of nicotine dependence; M54.9 Dorsalgia, unspecified; R53.83 Other fatigue; Z88.5 Allergy status to narcotic agent; Z88.8 Allergy status to other drugs, medicaments and biological substances
CPT/HCPCS: 36415; 74176; 80053; 81003; 85025; 87086; 99212; G0463

== ENCOUNTER 2019-02-02 09:17 | Emergency (ER) | payer BC, MEDICAID ==
[2019-02-02 09:41] VITALS: BP 119/84
[2019-02-02 10:49] LABS: Influenza A Molecular NEGATIVE (Negative); Influenza B Molecular NEGATIVE (Negative)
--- NOTE | 2019-02-02 11:34 | UC ---
Throat Pain/Nasal Jakob HPI - HPI Summary HPI Summary: 3 days of sore throat, pain with swallowing. Last night developed bilateral ear pain and mild cough. No fever, nausea/vomiting. - History of Current Complaint Chief Complaint: UCRespiratory Stated Complaint: ST,BI LAT EAR PAIN,ACHES, NAUSEA Time Seen by Provider: 02/02/19 09:57 Hx Obtained From: Patient Hx Last Menstrual Period: 03/2010 Onset/Duration: Gradual Onset, Lasting Days, Still Present Severity: Moderate Pain Intensity: 7 Pain Scale Used: 0-10 Numeric Cough: Nonproductive - Allergies/Home Medications Allergies/Adverse Reactions: Allergies Allergy/AdvReac Type Severity Reaction Status Date / Time morphine Allergy Difficulty Verified 02/02/19 09:31 Breathing sumatriptan Allergy Difficulty Verified 02/02/19 09:31 Breathing Home Medications: Home Medications Ibuprofen TAB* [Motrin TAB* 400 MG] 400 mg PO Q6H PRN 02/02/19 [History Confirmed 02/02/19] PMH/Surg Hx/FS Hx/Imm Hx GI/ History: Kidney Stones Neurological History: Migraine - Surgical History Surgical History: Yes Surgery Procedure, Year, and Place: HYSTERECTOMY--2009, tonsils, adenoids deviated septum 03/29/18. CHOLECYSTECTOMY--2008. BARIATRIC SX--2014. TUBAL LIGATION--2000. LEFT HEEL SX--10/2016-one screw in place. , 1995 - Family History Known Family History: Negative: Cardiac Disease, Hypertension - Social History Alcohol Use: None Substance Use Type: None Smoking Status (MU): Former Smoker Amount Used/How Often: 1/2 PPD Length of Time of Smoking/Using Tobacco: 15 YRS Have You Smoked in the Last Year: Yes Review of Systems All Other Systems Reviewed And Are Negative: Yes Constitutional: Positive: Fatigue ENT: Positive: Sore Throat, Ear Ache Respiratory: Positive: Cough Cardiovascular: Positive: Negative Gastrointestinal: Positive: Negative Physical Exam Triage Information Reviewed: Yes Appearance: Well-Appearing, No Pain Distress, Well-Nourished Vital Signs: Initial Vital Signs Temp 97.5 F 02/02/19 09:35 Pulse 63 02/02/19 09:35 Resp 20 02/02/19 09:35 BP 119/84 02/02/19 09:35 Pulse Ox 98 02/02/19 09:35 Laboratory Tests 02/02/19 02/02/19 10:34 10:37 Influenza A (Rapid) Negative Influenza B (Rapid) Negative Group A Strep Rapid Negative Vital Signs Reviewed: Yes Eyes: Positive: Conjunctiva Clear ENT: Positive: Hearing grossly normal, Pharynx normal, TMs normal Neck: Positive: Supple, Nontender, No Lymphadenopathy Respiratory Exam: Normal Cardiovascular Exam: Normal Abdomen Description: Positive: Soft Musculoskeletal: Positive: No Edema Neurological: Positive: Alert Psychological: Positive: Age Appropriate Behavior Skin: Negative: Rashes Throat Pain/Nasal Course/Dx - Differential Dx/Diagnosis Provider Diagnosis: Acute URI Discharge - Sign-Out/Discharge Documenting (check all that apply): Patient Departure All imaging exams completed and their final reports reviewed: No Studies - Discharge Plan Condition: Stable Disposition: HOME Patient Education Materials: Upper Respiratory Infection (ED) Forms: *Work Release Referrals: Garima Vela RIDDLER OPERATOR [Primary Care Provider] - If Needed Additional Instructions: YOUR SYMPTOMS ARE LIKELY VIRALLY MEDIATED AND SHOULD RESOLVE ON THEIR OWN WITH TIME. NO INDICATION FOR ANTIBIOTICS AT PRESENT. REST, HYDRATE, OTC MEDS NEEDED. SEEK FOLLOW-UP IF YOU ARE NOT IMPROVING OVER THE NEXT 1-2 WEEKS. - Billing Disposition and Condition Condition: STABLE Disposition: Home
== END 2019-02-02 11:25 | disposition home or self-care (01) ==
LOC: UCCORT 09:17
DX: J06.9 Acute upper respiratory infection, unspecified (principal); H92.03 Otalgia, bilateral; Z88.5 Allergy status to narcotic agent; Z88.8 Allergy status to other drugs, medicaments and biological substances; Z87.891 Personal history of nicotine dependence
CPT/HCPCS: 87651; 99211; G0463